=== PATIENT | female | born 1945 | race Caucasian/White ===

== ENCOUNTER 2025-02-25 10:18 | Emergency (ER) | payer MEDICARE, SELFPAY ==
--- NOTE | 2025-02-25 10:25 | ED.URI ---
HPI - URI/Sore Throat General Chief Complaint: Upper Respiratory Infection Stated Complaint: soreness, neck pain, throat pain Source: patient and RN notes reviewed Mode of arrival: ambulatory Limitations: no limitations History of Present Illness HPI Narrative: Patient is 80-year-old female who presents to the [facility] complaints of left-sided jaw pain. Patient states that she had an episode of left-sided jaw pain on that eventually went away. She states that she had another episode today, and the pain is still present. She denies any injury. Denies dental pain. States that she is experiencing some itching to the left ear, but denies pain or drainage. She denies chest pain, shortness of breath, or associated nausea. Reports history of thyroid disease. Related Data Allergies Allergy/AdvReac Type Severity Reaction Status Date / Time No Known Allergies Allergy Verified 02/25/25 10:36 Review of Systems Review of Systems: CONSTITUTIONAL: Denies fever, chills, or sweats. EYES: Denies visual changes, redness, or discharge. ENT: Reports left sided otalgia and left sided jaw pain. CARDIOVASCULAR: Denies chest pain, palpitations, or edema. RESPIRATORY: Denies cough or dyspnea. GASTROINTESTINAL: Denies abdominal pain, nausea, vomiting, or diarrhea. GENITOURINARY: Denies dysuria or hematuria. SKIN: Denies rash or itching. MUSCULOSKELETAL: Denies back pain, joint pain, or myalgia. NEUROLOGIC: Denies headache, numbness, or weakness. Pertinent positives per HPI. PMFSH Comments At the time of my signature, I reviewed and agree with the nursing past medical, surgical, social, and family history. There is no relevant family history pertinent to the patient complaint. Exam Narrative: GENERAL: This is a well-nourished, well-developed patient, in no apparent distress. HEAD: normocephalic, atraumatic. EYES: Sclera clear/white. Vision is grossly intact. EARS: External ears normal, auditory canals clear and without drainage, TMs normal without perforation. Hearing grossly intact. NOSE: External nose normal with no obvious nasal discharge, nares without redness, no rhinorrhea. THROAT: Mucous membranes moist, posterior pharynx clear. NECK: Neck supple, non-tender without lymphadenopathy, masses or thyromegaly. CARDIOVASCULAR: Regular rate and rhythm without murmurs, gallops, or rubs. RESPIRATORY: Clear to auscultation. Breath sounds equal bilaterally. No wheezes, rales, or rhonchi. GASTROINTESTINAL: Abdomen soft, non-tender, nondistended. Bowel sounds are active. No hepato-splenomegaly, or palpable masses. No guarding. SKIN: warm, intact with no suspicious lesions or rash, good texture and turgor. NEURO: awake, alert, and oriented to person, place and time. There were no obvious focal neurologic abnormalities. Course Course Level of Care: Express Care Visit Vital Signs Vital signs: Vital Signs Temperature 97.4 F L 02/25/25 10:28 Pulse Rate 87 02/25/25 10:28 Respiratory Rate 16 02/25/25 10:28 Blood Pressure 198/77 H 02/25/25 10:28 Pulse Oximetry 97 02/25/25 10:28 Oxygen Delivery Room Air 02/25/25 10:28 Temperature 97.4 F L 02/25/25 10:28 Pulse Rate 87 02/25/25 10:28 Respiratory Rate 16 02/25/25 10:28 Blood Pressure 198/77 H 02/25/25 10:28 Pulse Oximetry 97 02/25/25 10:28 Oxygen Delivery Room Air 02/25/25 10:28 Reviewed Transfer Transfered to: [facility] Transportation: Other (Private vehicle, refused ambulance) Accepting physician: Dr. Velásquez MDM - URI/Sore Throat MDM Narrative Medical decision making narrative: Patient was directed to [facility] for further evaluation. Patient was accepted by Dr. Velásquez for transfer. Patient declined ambulance transport, but states she will drive via private vehicle. EKG shows no acute ST elevation. Patient transferred for appropriate testing, evaluation, and treatment. Differential Diagnosis Differential diagnosis: Likely otitis media, sinusitis and other (TMJ related pain, DE) Lab Data Attestation: I reviewed the patient's lab results. ECG Data EKG #1: ECG completion date: 02/25/25 ECG completion time: 10:50 Interpretation: Sinus rhythm. 80 bpm. Left ventricular hypertrophy and ST/ T change. Possible septal myocardial infection, probably old. Normal axis, normal intervals. No acute ST elevation. Critical Care Time Critical Care Time Critical Care Time: No Discharge Plan Discharge Clinical Impression: Jaw pain Patient Disposition: Acute Care Hospital Condition: Stable Additional Instructions: Go directly to [facility] Patient Language: Faroese Follow-up/Referrals: Mingo,Kary Bingham APRN [Primary Care Provider, Unknown] Time of Disposition: 11:03
[2025-02-25 10:28] VITALS: BP 198/77; PULSE 87; RESP 16; TEMP 36.3; O2SAT 97
--- NOTE | 2025-02-25 10:41 | ECG_ITS ---
Test Date: 2025-02-25 10:50:24 Measurements Intervals [place] Rate: 80 P: 41 ND: 131 QRS: -15 QRSD: 107 T: 100 QT: 327 QTc: 379 Interpretive Statements SINUS RHYTHM LEFT VENTRICULAR HYPERTROPHY AND ST-T CHANGE CANNOT R/O SEPTAL INFARCT, AGE INDETERMINATE BASELINE ARTIFACT- I, II, III, AVR, AVL, AVF, V4 ABNORMAL ECG No previous ECG available for comparison Electronically Signed On 02-25-2025 11:55:20 CDT by Han Jimenez D.O.
== END 2025-02-25 11:00 | disposition short-term general hospital (02) ==
PROVIDERS: Emergency Provider Nurse Practitioner; PCP Registered Nurse
DX: R68.84 Jaw pain (principal); E07.9 Disorder of thyroid, unspecified
CPT/HCPCS: 93005; 99203; G0463